=== PATIENT | female | born 2000 | race Caucasian/White ===

== ENCOUNTER 2019-07-23 13:23 | Inpatient (IN) | payer OTHER ==
[~2019-07-23] VITALS: Ht 157.5 cm; Wt 44.9 kg
--- NOTE | 2019-07-23 14:03 | NUR ---
PTE REFIIERE DOLOR ABDOMINAL .PTE REFIERE QUE VA HACER ENTERVENIDA DE OPERACION DE VESICULA PARA ESTA SEMANA.
--- NOTE | 2019-07-23 15:40 | NUR ---
PACIENTE ALERTA Y ORIENTADA X3 ES EVALUADA POR QUIEN ORDENA CANALIZACION DE VENA ,MUESTRAS DE LABORATORIOS, ADMINISTRACION DE MEDICAMENTOS, SE ORIENTA SOBRE ORDEN MEDICA, SE EJECUTA ORDEN, PACIENTE TOLERA TRATAMIENTO.
== END 2019-07-30 12:37 | disposition home or self-care (01) | DRG 417 ==
LOC: ER 13:23 → MEDJ 22:00
PROVIDERS: Surgery; ADMIT Internal Medicine
PROC: BW40ZZZ Ultrasonography of Abdomen (ICD-10-PCS; 2019-07-23)
PROC: BF37ZZZ Magnetic Resonance Imaging (MRI) of Pancreas (ICD-10-PCS; 2019-07-24)
PROC: 0FT44ZZ Resection of Gallbladder, Percutaneous Endoscopic Approach (ICD-10-PCS; principal; 2019-07-28 09:00)
DX: K80.70 Calculus of gallbladder and bile duct without cholecystitis without obstruction (principal); K85.10 Biliary acute pancreatitis without necrosis or infection; D62 Acute posthemorrhagic anemia; K42.9 Umbilical hernia without obstruction or gangrene; E80.6 Other disorders of bilirubin metabolism; E86.0 Dehydration; E87.8 Other disorders of electrolyte and fluid balance, not elsewhere classified

== ENCOUNTER 2022-10-27 11:47 | Emergency (ER) | payer OTHER ==
[~2022-10-27] VITALS: Ht 157.5 cm; Wt 54.4 kg
[2022-10-27] MEDS ORDERED: ZITHROMAX500 MG PO (15:33)
[2022-10-27] MEDS ORDERED: ZYRTEC10 M3 PO (15:35)
[2022-10-27] MEDS ORDERED: MEDROLPACK PO (15:35)
== END 2022-10-27 15:46 | disposition home or self-care (01) ==
LOC: ER 11:47
DX: R07.81 Pleurodynia (principal); R53.81 Other malaise; R05.9 Cough, unspecified